=== PATIENT | female | born 1950 | race Caucasian/White ===

== ENCOUNTER 2019-02-08 11:26 | Emergency (ER) | payer OTHER ==
[~2019-02-08] VITALS: Ht 160 cm; Wt 54.4 kg
[~2019-02-08 11:26] MED LIST: ACET500 PO; Armour Thyroid15 MG PO; BENZ100A PO; CHOL10002 PO; DIPH50 PO; HYDMOR2 PO; METO25 PO; RALO60 PO; REFRESH OPTIVE1 EACH OP
[2019-02-08] MEDS ORDERED: THYR60 PO (12:43)
[2019-02-08 14:51] LABS: BASOPHILS ABSOLUTE AUTO 0.01 K/mm3 (0.00-0.23); BASOPHILS PERCENT AUTO 0 % (0-2); EOSINOPHILS PERCENT AUTO 0 % (0-6); Hematocrit 43.2 % (33.0-51.0); Hemoglobin 14.2 g/dL (11.5-16.0); IMMATURE GRAN ABSOLUTE AUTO 0.04 K/mm3 (0.00-0.10); IMMATURE GRAN PERCENT AUTO 0 % (0-1); LYMPHOCYTES ABSOLUTE AUTO 1.53 K/mm3 (0.84-5.20); LYMPHOCYTES PERCENT AUTO 16 % (21-46); MONOCYTES ABSOLUTE AUTO 0.32 K/mm3 (0.16-1.47); MONOCYTES PERCENT AUTO 3 % (4-13); Mean Corpuscular HGB 30.9 pg (26.0-34.0); Mean Corpuscular HGB Conc 32.9 g/dL (31.5-36.5); Mean Corpuscular Volume 94 fL (80-100); NEUTROPHILS ABSOLUTE AUTO 7.77 K/mm3 (1.96-9.15); NEUTROPHILS PERCENT AUTO 80 % (41-73); Platelet Count 253 K/mm3 (150-400); RDW Coefficient Variation 12.1 % (11.7-14.2); RDW Standard Deviation 42.2 fL (35.1-46.3); Red Blood Cell Count 4.59 M/mm3 (3.80-5.20); White Blood Cell Count 9.67 K/mm3 (4.00-11.30)
[2019-02-08 15:15] LABS: Alanine Aminotransfer (ALT/SGP 31 U/L (12-78); Albumin, Blood 3.8 g/dL (3.4-5.0); Alk Phos 84 U/L (50-136); Anion Gap 7 mmol/L (6-16); Aspartate Aminotrans (AST/SGOT 29 U/L (12-37); Bilirubin, Total 0.5 mg/dL (0.1-1.0); Blood Urea Nitrogen 21 mg/dL (8-24); Bun/Creatinine Ratio 26.2 (12.0-20.0); CO2, Blood 29 mmol/L (21-32); Calcium, Blood 9.3 mg/dL (8.5-10.1); Chloride, Blood 104 mmol/L (98-108); Globulin, Blood 3.9 g/dL (2.2-4.0); Glomerular Filtration Rate >60 (60-); Glucose, Blood 103 mg/dL (70-99); Potassium, Blood 3.8 mmol/L (3.5-5.5); Sodium, Blood 140 mmol/L (136-145); Total Protein, Blood 7.7 g/dL (6.4-8.2)
[2019-02-08 15:18] LABS: International Normalized Ratio 0.99; Prothrombin Time Results 10.5 Sec (9.7-11.5)
== END 2019-02-08 15:55 | disposition short-term general hospital (02) ==
LOC: ER 11:26
PROVIDERS: Emergency Medicine
DX: I61.9 Nontraumatic intracerebral hemorrhage, unspecified (principal); G93.0 Cerebral cysts; Z91.013 Allergy to seafood; Z88.8 Allergy status to other drugs, medicaments and biological substances; Z88.2 Allergy status to sulfonamides; Z88.5 Allergy status to narcotic agent; Z91.041 Radiographic dye allergy status; Z79.899 Other long term (current) drug therapy
CPT/HCPCS: 36415; 70450; 80053; 85025; 85610; 96374; 96375; 99284-25; J0780; J1170

== ENCOUNTER 2023-08-02 19:51 | Inpatient (IN) | payer OTHER ==
[~2023-08-02] VITALS: Ht 160 cm; Wt 56.7 kg
[~2023-08-02 19:51] MED LIST changes: +BENADRYL25 MG PO; -CHOL10002 PO; -DIPH50 PO; -REFRESH OPTIVE1 EACH OP; +REFRESH RELIEVA10 M4 BOTHEYES; +THYR60 PO; +VITAMIN D31000 UNI1 PO
[2023-08-02] MEDS ORDERED: Ondansetron HCl 2 MG / ML 2ML Vial IV PRN ×2 (20:20→23:40)
[2023-08-02] MEDS ORDERED: HYDROmorphone HCl/Pf 1MG SYR IV ONE ×2 (20:20→23:00)
[2023-08-02] MEDS ORDERED: NS 1,000 ML IV SCH (20:20)
[2023-08-02 20:34] LABS: BASOPHILS ABSOLUTE AUTO 0.03 K/mm3 (0.00-0.23); BASOPHILS PERCENT AUTO 0 % (0-2); EOSINOPHILS ABSOLUTE AUTO 0.06 K/mm3 (0.00-0.68); EOSINOPHILS PERCENT AUTO 1 % (0-6); Hematocrit 44.9 % (33.0-51.0); Hemoglobin 14.6 g/dL (11.5-16.0); IMMATURE GRAN ABSOLUTE AUTO 0.02 K/mm3 (0.00-0.10); IMMATURE GRAN PERCENT AUTO 0 % (0-1); LYMPHOCYTES ABSOLUTE AUTO 2.81 K/mm3 (0.84-5.20); LYMPHOCYTES PERCENT AUTO 24 % (21-46); MONOCYTES ABSOLUTE AUTO 0.56 K/mm3 (0.16-1.47); MONOCYTES PERCENT AUTO 5 % (4-13); Mean Corpuscular HGB 31.2 pg (26.0-34.0); Mean Corpuscular HGB Conc 32.5 g/dL (31.5-36.5); Mean Corpuscular Volume 96 fL (80-100); Mean Platelet Volume 9.6 fL (9.1-12.4); NEUTROPHILS ABSOLUTE AUTO 8.23 K/mm3 (1.96-9.15); NEUTROPHILS PERCENT AUTO 70 % (41-73); Platelet Count 310 K/mm3 (150-400); RDW Coefficient Variation 12.5 % (11.7-14.2); RDW Standard Deviation 44.3 fL (35.1-46.3); Red Blood Cell Count 4.68 M/mm3 (3.80-5.20); White Blood Cell Count 11.71 K/mm3 (4.00-11.30)
[2023-08-02 20:55] LABS: Albumin, Blood 3.8 g/dL (3.4-5.0); Albumin/Globulin Ratio 0.8 (0.8-1.8); Bilirubin, Total 0.4 mg/dL (0.1-1.0); Bun/Creatinine Ratio 33.7 (12.0-20.0); Calcium, Blood 10.3 mg/dL (8.5-10.1); Creatinine, Blood 0.83 mg/dL (0.40-1.00); Globulin, Blood 4.5 g/dL (2.2-4.0); Potassium, Blood 4.2 mmol/L (3.5-5.5); Total Protein, Blood 8.3 g/dL (6.4-8.2)
[2023-08-02] MEDS ORDERED: HYDROmorphone HCl/Pf 1MG SYR ONE (22:59)
[2023-08-02] MEDS ORDERED: Acetaminophen 325 MG TABLET PO PRN (23:40)
[2023-08-02] MEDS ORDERED: HYDROmorphone HCl/Pf 1MG SYR IV PRN (23:40)
[2023-08-02] MEDS ORDERED: Naloxone HCl 0.4MG / ML 1ML Vial IV PRN (23:40)
[2023-08-03] MEDS ORDERED: Lactated Ringer's 1,000 ML IV SCH (00:15)
[2023-08-03 01:05] VITALS: BP 144/81
[2023-08-03] MEDS ORDERED: LIDO700A20 TOP (01:31)
[2023-08-03] MEDS ORDERED: MAGNESIUM OXID500 MG PO (01:31)
[2023-08-03] MEDS ORDERED: Hair, Skin & N1 EACH PO (01:31)
[2023-08-03] MEDS ORDERED: SENN187 PO (01:32)
[2023-08-03] MEDS ORDERED: HYDROmorphone HCl/Pf 1MG SYR IV PRN (01:55)
[2023-08-03 03:07] VITALS: BP 128/66
--- NOTE | 2023-08-03 05:01 | NUR ---
SHIFT SUMMARY EDILBERTO ARRIVED FROM THE ED AT 0100, SHE WAS ABLE TO TRANSFER HERSELF TO THE BED WITH STANDBY ASSIST. PT WAS COMPLAINING OF SEVERE ABDOMINAL PAIN, WHICH RESPONDED WELL TO DILAUDED. ADMIT WAS COMPLETED, NG TUBED WAS PLACED AND XRAY WAS DONE TO ENSURE PLACEMENT. PT IS RESTING IN BED AT A LOW POSITION WITH NG SUCTION ON LOW INTERMITTENT SUCTION.
[2023-08-03 05:13] LABS: BASOPHILS ABSOLUTE AUTO 0.03 K/mm3 (0.00-0.23); BASOPHILS PERCENT AUTO 0 % (0-2); EOSINOPHILS ABSOLUTE AUTO 0.01 K/mm3 (0.00-0.68); EOSINOPHILS PERCENT AUTO 0 % (0-6); Hematocrit 42.8 % (33.0-51.0); Hemoglobin 14.1 g/dL (11.5-16.0); IMMATURE GRAN ABSOLUTE AUTO 0.04 K/mm3 (0.00-0.10); IMMATURE GRAN PERCENT AUTO 0 % (0-1); LYMPHOCYTES ABSOLUTE AUTO 0.89 K/mm3 (0.84-5.20); LYMPHOCYTES PERCENT AUTO 6 % (21-46); MONOCYTES ABSOLUTE AUTO 0.91 K/mm3 (0.16-1.47); MONOCYTES PERCENT AUTO 7 % (4-13); Mean Corpuscular HGB 31.5 pg (26.0-34.0); Mean Corpuscular HGB Conc 32.9 g/dL (31.5-36.5); Mean Corpuscular Volume 96 fL (80-100); Mean Platelet Volume 9.9 fL (9.1-12.4); NEUTROPHILS ABSOLUTE AUTO 12.15 K/mm3 (1.96-9.15); NEUTROPHILS PERCENT AUTO 87 % (41-73); Platelet Count 254 K/mm3 (150-400); RDW Coefficient Variation 12.4 % (11.7-14.2); RDW Standard Deviation 43.9 fL (35.1-46.3); Red Blood Cell Count 4.47 M/mm3 (3.80-5.20); White Blood Cell Count 14.03 K/mm3 (4.00-11.30)
[2023-08-03 05:30] LABS: International Normalized Ratio 0.96; Prothrombin Time Results 10.3 Sec (9.7-11.5)
[2023-08-03] MEDS ORDERED: Thyroid 60 MG Tab PO SCH (06:00)
[2023-08-03 06:14] LABS: Albumin, Blood 3.3 g/dL (3.4-5.0); Albumin/Globulin Ratio 0.8 (0.8-1.8); Bilirubin, Total 0.4 mg/dL (0.1-1.0); Bun/Creatinine Ratio 36.8 (12.0-20.0); Calcium, Blood 9.6 mg/dL (8.5-10.1); Creatinine, Blood 0.68 mg/dL (0.40-1.00); Globulin, Blood 4.1 g/dL (2.2-4.0); Potassium, Blood 4.7 mmol/L (3.5-5.5); Thyroid Stimulating Hormone 2.12 uIU/mL (0.360-4.800); Total Protein, Blood 7.4 g/dL (6.4-8.2)
[2023-08-03 07:24] VITALS: BP 120/57
[2023-08-03 14:54] VITALS: BP 124/67
--- NOTE | 2023-08-03 17:58 | NUR ---
SHIFT SUMMARY PT AXO, PLEASANT AND COOPERATIVE WITH CARE. NG TUBE PATENT AND AT SUCTION, MED INTERMIT. CHILI COLORED OUTPUT, 400ML THIS SHIFT. PER DR CHAVARRIA, ICE CHIPS OKAY, PT TOLERATING. VSS. PT STATES THAT PAIN AND NAUSEA ARE IMPROVED AND TOLERABLE THIS SHIFT. UP WITH 1 ASSIST TO BATHROOM. BED IN LOW POSITION, CALL LIGHT WITHIN REACH. NO BM THIS SHIFT.
[2023-08-03 19:18] VITALS: BP 118/60
[2023-08-04 04:05] VITALS: BP 139/66
--- NOTE | 2023-08-04 04:22 | NUR ---
SHIFT SUMMARY EIDLBERTO WAS ALERT AND ORIENTED ON ASSESSMENT, AND FEELING BETTER THAN PREVIOUS SHIFT. PT DID REQUIRE PAIN MANAGEMENT ONE TIME FOR HEADACHE. PT WAS ABLE TO PASS GAS, AND HAD A SMALL SEMIFORMED BM THIS SHIFT. PT NJ TUBE STILL DRAINING AT INTERMITTENT MEDIUM SUCTION. PT RESTING IN BED AT LOW POSITION WITH CALL LIGHT IN REACH.
[2023-08-04 05:54] LABS: Bun/Creatinine Ratio 27.1 (12.0-20.0); Calcium, Blood 9.5 mg/dL (8.5-10.1); Creatinine, Blood 0.67 mg/dL (0.40-1.00); Potassium, Blood 3.7 mmol/L (3.5-5.5)
[2023-08-04 07:35] VITALS: BP 138/67
[2023-08-04] MEDS ORDERED: Polyethylene Glycol 3350 17 gm PO SCH (08:00)
[2023-08-04] MEDS ORDERED: Lactated Ringer's 1,000 ML IV SCH (10:30)
[2023-08-04 14:45] VITALS: BP 142/72
--- NOTE | 2023-08-04 20:02 | NUR ---
SUMMARY- PT A/O X4, USES CALL LIGHT APPROPRIATELY.CLAMPED NG TUBE AT [address] CHAVARRIA EVALUATED PT. ALSO DECREASED IVF TO 50/HR. TOLERATED WATER AND ICE CHIPS SLOW. DECLINED ALL JELLO STATING IT HAS FRUIT CONTENT SHE IS ALLERGIC TO. HAD A SMALL SOFT BROWN STOOL THIS AM, STATES SHE IS PASSING GAS. HAD A BOUT OF NAUSEA AND DECLINED ANY ANTIEMETIC IN RELATION TO HER HX WITH ALLERGYS. NAUSEA PASSED. NG CLAMPED ALL DAY. NO MORE BM'S BUT POSITIVE FLATUS. REPORTED TO HARLEEN XIAO
[2023-08-04 20:46] VITALS: BP 144/72
[2023-08-05 03:49] VITALS: BP 137/81
--- NOTE | 2023-08-05 05:12 | NUR ---
SHIFT SUMMARY PT IS ALERT AND ORIENTED X4. PT IS INDEPENDANT IN THE ROOM. PT HAD A SMALL BROWN UNFORMED BOWEL MOVEMENT THIS EVENING. NG TUBE REMAINS CLAMPED. PT TOLERATED CLEAR LIQUID DIET WELL. PT SLEPT THROUGHOUT THE NIGHT. BREATHING WAS EVEN AND UNLABORED. FRESH WATER WAS PROVIDED AT THE START OF SHIFT.
--- NOTE | 2023-08-05 06:47 | NUR ---
CTA/HAT BLOCKER I HAVE READ THIS STUDENT'S DOCUMENTATION. SHIFT SUMMARY IN HAT BLOCKER NOTES
[2023-08-05 07:37] VITALS: BP 145/67
[2023-08-05] MEDS ORDERED: DEXTROMETHORPHAN/BENZOCAINE 1 EACH LOZENGE MT PRN (08:25)
[2023-08-05] MEDS ORDERED: Sennosides 8.6 MG Tab PO SCH (09:00)
--- NOTE | 2023-08-05 16:39 | NUR ---
ALL WENT WELL WITH THE FULL LIQUID LUNCH. DR CHAVARRIA CAME BY ABOUT 1400 AND OK'D FOR PT TO DC HOME. PT DENEID NAUSEA OR PAIN AND PASSING GAS, FEELS COMFORTABLE GOING HOME. DC'D WITH INSTRUCTIONS 1540. WHEELCHAIR STAFF ESCORT TO PRIVATE CAR TO DRIVE PT HOME.
== END 2023-08-05 15:46 | disposition home or self-care (01) | DRG 389 ==
LOC: ER 19:51 → MEDS 23:38 → SURS 23:38 → MEDS 08-03 00:58 → ENPENDDIS 08-05 15:40 → MEDS 08-05 15:46
PROVIDERS: Emergency Medicine; Internal Medicine; ADMIT Student in an Organized Health Care Education/Training Program
PROC: 0D9670Z Drainage of Stomach with Drainage Device, Via Natural or Artificial Opening (ICD-10-PCS; principal; 2023-08-02)
DX: K56.600 Partial intestinal obstruction, unspecified as to cause (principal); R65.10 Systemic inflammatory response syndrome (SIRS) of non-infectious origin without acute organ dysfunction; E03.9 Hypothyroidism, unspecified; Z66 Do not resuscitate; N28.89 Other specified disorders of kidney and ureter; M81.0 Age-related osteoporosis without current pathological fracture; Z88.2 Allergy status to sulfonamides; Z91.041 Radiographic dye allergy status; Z88.8 Allergy status to other drugs, medicaments and biological substances; Z88.5 Allergy status to narcotic agent; Z79.899 Other long term (current) drug therapy; Z90.13 Acquired absence of bilateral breasts and nipples; Z98.890 Other specified postprocedural states; Z85.841 Personal history of malignant neoplasm of brain; Z98.2 Presence of cerebrospinal fluid drainage device; Z85.038 Personal history of other malignant neoplasm of large intestine; Z90.49 Acquired absence of other specified parts of digestive tract; Z90.710 Acquired absence of both cervix and uterus
CPT/HCPCS: 36415; 71045; 74176; 76770; 80048; 80053; 82947; 83690; 83735; 84443; 85025; 85610; 93005; 93010; 96361; 96374; 96375; 96376; 99285-25; A9270; J1170; J2405; J7030; J7120